=== PATIENT | male | born 1950 | race Caucasian/White ===

== ENCOUNTER 2016-12-09 19:04 | Emergency (ER) | payer MEDICARE, BC ==
[2016-12-09 19:34] VITALS: BP 149/89
[2016-12-09] MEDS ORDERED: Diphtheria,Pertussis(Acell),Tetanus Vaccine 0.5 ML SDV IM ONE (19:40)
[2016-12-09] MEDS ORDERED: Bacitracin Oint 1 GM U/D Packet TOP ONE (19:41)
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
--- NOTE | 2016-12-11 10:22 | CR ---
Left hand with fluoroscopy There is a single foreign body resembling a nail coursing through the soft tissues anterior to the r adial aspect of the wrist. There is no evidence of fracture. 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 A single fluoroscopic image demonstrates successful removal of the foreign body. Impression: 1. Successful removal of foreign body.
== END 2016-12-09 21:11 | disposition home or self-care (01) ==
LOC: JP.ED 19:04
DX: S60.552A Superficial foreign body of left hand, initial encounter (principal); W45.8XXA Other foreign body or object entering through skin, initial encounter; H54.7 Unspecified visual loss
CPT/HCPCS: 10120; 73120-26-LT; 73120-LT; 76000; 76000-26; 90471; 90715; 99283-25; 99284-25

== ENCOUNTER 2019-03-19 18:00 | Emergency (ER) | payer BC, MEDICARE ==
[2019-03-19 19:29] VITALS: BP 168/75
[2019-03-19] MEDS ORDERED: Lidocaine 1% 20 ML MDV INJECT ONE (20:03)
[2019-03-19] MEDS ORDERED: Bacitracin Oint 1 GM U/D Packet TOP ONE (20:03)
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
== END 2019-03-19 21:14 | disposition home or self-care (01) ==
LOC: JP.ED 18:00
DX: S61.412A Laceration without foreign body of left hand, initial encounter (principal); M19.90 Unspecified osteoarthritis, unspecified site; W26.8XXA Contact with other sharp object(s), not elsewhere classified, initial encounter
CPT/HCPCS: 12001; 99282; J2001